=== PATIENT | female | born 1995 ===

== ENCOUNTER 2018-08-29 10:22 | Emergency (ER) | payer OTHER ==
[2018-08-29 10:29] VITALS: BP 142/80; PULSE 104; RESP 20; TEMP 99.1; O2SAT 97
[2018-08-29] MEDS ORDERED: Penicillin G Benzathine 1.2 Mill Unit/2 ml Syr IM ONE (10:49)
--- NOTE | 2018-08-29 10:54 | C.PDOC ---
History Of Present Illness SORE THROAT X 4 DAYS. SUBJ FEVER. NO OTHER ASSOC SX ALSO CO EXAC LBP X 4 DAYS. HO INTERMIT LBP X 3 YRS, PS NEW TO [facility]. PREVIOUSLY WOULD SEE CHIROPRACTIC REGULARLY BUT SINCE MOVING TO [facility] NO LONGER HAS ONE. 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 CURRENT PAIN MORE INTENSE THAN PREV. LIMITED RELIEF W ADVIL 2 TAB. NO TRAUMA, WORSE W MOVEMENT, LOCALIZED NO ASSOC WEAK/NUMB EXAM NONTOXIC MOD DIST HEENT +PHARYNGITIS W B/L EXUDATE, SWELL. NO DROOL, STRIDOR; UVULA MIDLINE BACK LIMITED ROM DUE TO PAIN B/L SPASM LOWER BACK W REPRODUC PAIN. NEURO INTACT GAIT WNL REMAINDER NEG MDM PHARYNGITIS, RX STREP. ACUTE EXAC CHRONIC BP. PAIN MEDS, RX Time Seen by Provider: 08/29/18 10:33 Chief Complaint (Nursing): Medical Clearance History Per: Patient History/Exam Limitations: no limitations Onset/Duration Of Symptoms: Days Current Symptoms Are (Timing): Still Present Severity: Moderate Past Medical History Reviewed: Historical Data, Nursing Documentation, Vital Signs Vital Signs: Last Vital Signs Temp 99.1 F 08/29/18 10:27 Pulse 104 H 08/29/18 10:27 Resp 20 08/29/18 10:27 BP 142/80 08/29/18 10:27 Pulse Ox 97 08/29/18 10:27 Primary Care Provider: FAMILY PROVIDER,NO - Medical History PMH: No Chronic Diseases Surgical History: No Surg Hx Family History: States: No Known Family Hx - Social History Hx Alcohol Use: Yes Hx Substance Use: No Review Of Systems Except As Marked, All Systems Reviewed And Found Negative. Constitutional: Positive for: Fever (subjective fever). Negative for: Chills ENT: Positive for: Throat Pain. Negative for: Nose Congestion Gastrointestinal: Negative for: Nausea, Vomiting, Abdominal Pain Genitourinary: Negative for: Dysuria, Frequency, Incontinence, Hematuria Musculoskeletal: Positive for: Back Pain Neurological: Negative for: Weakness, Numbness Physical Exam - Physical Exam Appears: Non-toxic, Other (moderate distress) Skin: Normal Color, Warm, Dry Head: Atraumatic, Normacephalic Eye(s): bilateral: Normal Inspection Nose: Normal Oral Mucosa: Moist Throat: Exudate, No Drooling, Other (pharyngitis with bilateral exudates and swelling, no stridor, uvula midline) Respiratory: Other (NARD) Back: Decreased ROM (limited ROM due to pain), Muscle Spasm (bilateral spasm to lower back with reproducible pain) Neurological/Psych: Oriented x3, Normal Speech, Normal Motor, Normal Sensation Gait: Other (WNL) ED Course And Treatment O2 Sat by Pulse Oximetry: 97 (RA) Pulse Ox Interpretation: Normal Medical Decision Making Medical Decision Making: Plan: --Toradol IM --Tylenol PO --Decadron PO --Lidoderm Patch --Bicillin L-A Inj IM PHARYNGITIS, RX STREP. ACUTE EXAC CHRONIC BP. PAIN MEDS, RX Disposition Counseled Patient/Family Regarding: Diagnosis, Need For Followup, Rx Given - Disposition Referrals: [facility] [Outside] [facility] [Outside] Disposition: HOME/ ROUTINE Disposition Time: 10:54 Condition: IMPROVED Additional Instructions: APPLY PATCH TO AFFECTED AREA. MAX 3 PATCHES AT A TIME. REMOVE PATCH 12 HOURS AFTER INITIAL APPLICATION. ALTERNATE 12 HOURS ON, 12 HOURS OFF. Prescriptions: Acetaminophen [Tylenol Extra Strength] 2 tab PO Q6 #30 tablet Cyclobenzaprine [Flexeril] 10 mg PO TID #15 tab Ibuprofen [Motrin] 600 mg PO Q6 #30 tab Lidocaine 5% [Lidoderm] 2 patch TOP ONCE PRN #20 patch MDD 3 PATCHES PRN Reason: Pain, Moderate (4-7) Instructions: Low Back Pain (DC), Sore Throat, Adult (DC) Forms: [facility] (Turkmen), Work Excuse - Clinical Impression Clinical Impression: Pharyngitis, Acute exacerbation of chronic low back pain - Scribe Statement The provider has reviewed the documentation as recorded by the Eder Melgar Provider Attestation: All medical record entries made by the Leticiaibfede were at my direction and personally dictated by me. I have reviewed the chart and agree that the record accurately reflects my personal performance of the history, physical exam, medical decision making, and the department course for this patient. I have also personally directed, reviewed, and agree with the discharge instructions and disposition.
[2018-08-29] MEDS ORDERED: Lidocaine 5% Patch TD STA (10:55)
[2018-08-29] MEDS ORDERED: Lidocaine 5% Patch TD ONE (11:03)
== END 2018-08-29 11:25 | disposition home or self-care (01) ==
LOC: C.ER 10:22
DX: J02.9 Acute pharyngitis, unspecified (principal); G89.29 Other chronic pain; M54.5 Low back pain
CPT/HCPCS: 96372; 99282; J0561; J1885; J8540

== ENCOUNTER 2018-09-02 14:33 | Emergency (ER) | payer OTHER ==
[2018-09-02 15:09] VITALS: TEMP 99.4
--- NOTE | 2018-09-02 17:32 | C.PDOC ---
History Of Present Illness 23 y/o female presents to the ER complaining of sore throat and right sided ear discomfort which has been present for the past 1 week. Patient was evaluated for similar symptoms in [facility] ER 4 days ago. Patient states that she has hoarseness in her throat and she has tonsillar swelling. She notes that she has difficulty swallowing due to the pain. She also notes that her right ear is clogged. Patient is also complaining of low back pain. She was treated with Bicillin L-A injection in [facility] ER 4 days ago and was discharged with prescription for pain medications. Denies having ear pain, fever,chills, headache,dizziness, cough, SOB, nausea, vomiting, abdominal pain,dysuria, hematuria, and bowel/bladder incontinence. Time Seen by Provider: 09/02/18 15:23 Chief Complaint (Nursing): ENT Problem Past Medical History Reviewed: Historical Data, Nursing Documentation, Vital Signs Vital Signs: Last Vital Signs Temp 99.4 F 09/02/18 15:05 Pulse 94 H 09/02/18 15:05 Resp 20 09/02/18 15:05 BP 130/80 09/02/18 15:05 Pulse Ox 95 09/02/18 15:05 Primary Care Provider: FAMILY PROVIDER,NO - Medical History PMH: No Chronic Diseases Surgical History: No Surg Hx Family History: States: No Known Family Hx - Social History Hx Alcohol Use: Yes Hx Substance Use: No Review Of Systems Except As Marked, All Systems Reviewed And Found Negative. Constitutional: Negative for: Fever, Chills ENT: Positive for: Throat Pain, Other (right ear clogged) Cardiovascular: Negative for: Chest Pain Respiratory: Negative for: Cough, Shortness of Breath Gastrointestinal: Negative for: Nausea, Vomiting, Abdominal Pain Musculoskeletal: Positive for: Back Pain Physical Exam - Physical Exam Appears: Non-toxic, No Acute Distress, Other (mild hoarseness in voice) Skin: Normal Color, Warm, Dry Head: Atraumatic, Normacephalic Eye(s): bilateral: Normal Inspection Ear(s): Bilateral: Normal Nose: Normal Oral Mucosa: Moist Throat: Erythema (tonsillar erythema), No Exudate, Other (tonsillar swelling, uvula midline) Neck: Supple Lymphatic: No Adenopathy Chest: Symmetrical Cardiovascular: Rhythm Regular Respiratory: Normal Breath Sounds, No Rales, No Rhonchi, No Wheezing Back: Normal Inspection, No Vertebral Tenderness, No Decreased ROM Extremity: Bilateral: Atraumatic Pulses: Left Dorsalis Pedis: Normal, Right Dorsalis Pedis: Normal Neurological/Psych: Oriented x3, Normal Speech ED Course And Treatment O2 Sat by Pulse Oximetry: 95 (RA) Pulse Ox Interpretation: Normal Medical Decision Making Medical Decision Making: Plan: --Rapid Strep Test and mono. --Throat Culture Results negative. Patient updated on results. Will treat for steroid discomfort. Afebrile. No signs of tonsillar abscess on exam. Will return with any worsening symptoms, advised follow-up with PMD an also ENT. States she has chronic back pain and will continue to take medications previously prescribed to her in the ED. No neuro deficits or signs of cauda equina. Disposition Counseled Patient/Family Regarding: Studies Performed, Diagnosis, Need For Followup, Rx Given - Disposition Referrals: Aric Art MD [Staff Provider] - Disposition: HOME/ ROUTINE Disposition Time: 17:30 Condition: GOOD Additional Instructions: Follow up with ENT and PMD. Salt water gargles. Prescriptions: Acetaminophen with Codeine [Tylenol with Codeine No. 3 300 mg-30 mg] 1 tab PO Q6 3 Days #12 tab predniSONE [Prednisone] 20 mg PO DAILY #5 tab Instructions: Laryngitis, Sore Throat in Adults Forms: [facility] (Iraqi), Work Excuse Print Language: MALAYSIAN - Clinical Impression Clinical Impression: Pharyngitis - PA / CREATIVE ENGAGEMENT DIRECTOR / Resident Statement MD/DO has reviewed & agrees with the documentation as recorded. - Scribe Statement The provider has reviewed the documentation as recorded by the Eder Melgar Provider Attestation All medical record entries made by the Eder were at my direction and personally dictated by me. I have reviewed the chart and agree that the record accurately reflects my personal performance of the history, physical exam, medical decision making, and the department course for this patient. I have also personally directed, reviewed, and agree with the discharge instructions and disposition.
[2018-09-02 17:41] VITALS: BP 116/75; PULSE 77; RESP 18
[2018-09-02 19:36] VITALS: O2SAT 95
== END 2018-09-02 17:40 | disposition home or self-care (01) ==
LOC: C.ER 14:33
DX: J02.9 Acute pharyngitis, unspecified (principal)